=== PATIENT | female | born 1950 | race Caucasian/White ===

== ENCOUNTER 2023-02-21 18:14 | Emergency (ER) | payer MEDICARE, SELFPAY ==
--- NOTE | ~2023-02-21 | CT_ITS ---
EXAMINATION: CT HEAD WITHOUT CONTRAST CLINICAL INFORMATION: Head injury. On Xarelto. COMPARISON: None. TECHNIQUE: Contiguous axial imaging was performed from the skull base to vertex without intravenous administration of contrast. This CT examination was performed using dose optimization techniques as appropriate, variously including the following: *Automated exposure control *Adjustment of mA and/or kV according to patient size (this includes techniques or standardized protocols for targeted exams where dose is matched to indication/reason for exam; i.e. extremities or head) *Use of iterative reconstruction technique DLP: 567 mGy-cm. FINDINGS: There is no intracranial hemorrhage, large infarction, or mass lesion. There is no extra-axial collection. The ventricles are normal in size and configuration without evidence of hydrocephalus. The visualized paranasal sinuses and mastoid air cells are clear. The calvarium is intact. CT/CT head/brain wo IV con IMPRESSION: No acute intracranial abnormality.
--- NOTE | 2023-02-21 18:16 | ED_ITS ---
HPI - Wound/Laceration General Chief Complaint: Wound/Laceration Stated Complaint: laceration on forehead, fall at home Time Seen by Provider: 02/21/23 18:48 Source: patient and family Mode of arrival: ambulatory Limitations: no limitations History of Present Illness HPI narrative: 72-year-old female with a past medical history of atrial fibrillation currently on Xarelto who is presenting to the ER with complaints of a head injury with a laceration to her right forehead/scalp that occurred prior to arrival after she impacted 1 of the cabinets in the kitchen that she left open while she was trying to cook prior to arrival. She denies any actual fall down, loss of consciousness, neck injury, changes in vision, paresthesias, weakness or any other symptoms complaints or concerns at this time. Reports that she is up-to-date on tetanus since 2019. Onset (ago): minute(s) (Prior to arrival) Location: scalp and face Place: home Patient tetanus UTD: Yes Context: accidental Associated symptoms: none Treatments prior to arrival: bandage Related Data Allergies Allergy/AdvReac Type Severity Reaction Status Date / Time amiodarone Allergy Rash Verified 02/21/23 18:20 amoxicillin Allergy Rash Verified 02/21/23 18:20 bacitracin Allergy Rash Verified 02/21/23 18:20 bupropion [From Wellbutrin] Allergy Rash Verified 02/21/23 18:20 clavulanic acid Allergy Rash Verified 02/21/23 18:20 [From Augmentin] cocamidopropyl betaine Allergy Rash Verified 02/21/23 18:20 diltiazem Allergy Swelling Verified 02/21/23 18:20 Opioids - Morphine Analogues Allergy Nausea and Verified 02/21/23 18:20 Vomiting bactria ds Allergy Rash Uncoded 02/21/23 18:20 Review of Systems Review of Systems: Constitutional : No Fever, No Chills, Cardiovascular : No Chest Pain, No SOB Respiratory : No Dyspnea Gastrointestinal : No abdominal pain Musculoskeletal : No Joint Swelling Skin : positive skin laceration, No Foreign bodies, No rash, No surrounding erythema Neuro : No Weakness, No Numbness/tingling Psych : No SI/HI/thoughts of self injury Yes all other systems are reviewed and are negative PMFSH Past Medical History Attestation statement: The following information was validated with the patient. Source: old records reviewed, obtained from family and nursing notes reviewed Social History Social History Advance Directives: No Advance Directives Information Provided: Yes Physical Exam Vital Signs: Vital Signs: Last Vital Signs Temp 97.3 F 02/21/23 18:21 Pulse 79 02/21/23 18:21 Resp 18 02/21/23 18:21 BP 129/75 02/21/23 18:21 Pulse Ox 98 02/21/23 18:21 O2 Del Method Room Air 02/21/23 18:21 BMI result Body Mass Index 27.6 vital signs have been reviewed as normal and appeared to be correct. Blood pressure normal. Heart rate normal. Respiration rate normal. Temperature normal. Oxygen saturation normal. Appearance: Alert. Oriented X3. No acute distress. Head: Right forehead/scalp patient has 2 cm intermediate linear laceration. No active bleeding or foreign body or scalp tenderness. The rest of the external exam is atraumatic and nontender. No Tejeda signs noted. No raccoon eyes noted Eyes: PERRLA. EOMI. Conjunctiva and sclera normal. Eyelids normal. ENT: EAC normal. TM's Normal. No septal hematoma noted. No hemotympanum noted. Pharynx normal. Uvula midline. Moist mucous membranes. No lesions/ulcerations or masses noted on the tongue. Normal voice. No trismus noted. No drooling noted. No muffled voice noted. Neck: Normal inspection. Neck supple. FROM. No adenopathy. Thyroid Normal. No tracheal deviation noted. No crepitus is noted. No meningeal signs. No neck mass noted. No signs of trauma noted. CVS: Normal heart rate and rhythm. Heart sound normal. Pulses normal throughout. No murmurs/rales/gallops. Respiratory: No respiratory distress. Painless inspiration. Breath sounds normal. No wheezes/rales/rhonchi noted. Chest nontender. No crepitus is noted. No accessory muscle usage noted or decreased air movement noted. No signs of trauma. Abdomen: Soft and nontender. Nondistended. No guarding. No rigidity. Bowel sounds normal in all 4 quadrants. No distention noted. No organomegaly noted. No visible injury noted. No rebound tenderness. Negative Rovsing sign. Negative obturator's sign. Negative psoas sign. Negative Villavicencio sign. Back: No CVA tenderness. Full range of motion noted. Nontender. No signs of trauma. Patient neuro intact bilaterally and distally on all 4 extremities. P atient's reflexes intact bilaterally and distally on all 4 extremities. No rashes/lesion/induration/fluctuance or signs of infection noted. Skin: Skin warm and dry. Normal skin color. Normal skin turgor. No rashes/lesions/lacerations noted. Extremities: No lower extremity edema. No calf tenderness is noted. Extremities exhibit normal range of motion and nontender. Neuro: Oriented X 3. No motor deficit. No sensory deficit. Reflexes normal. Normal steady gait. No focal neuro deficits noted. CN's II-XII intact bilaterally? Vascular: + radial pulses/+ 2 distal pedal pulses/+2 dorsalis pedis b/l. Normal cap refill. No cyanosis noted to upper extremity nails and lower extremity toes nails. Course Course Course Narrative: This is an RME: Additional HPI, ROS, PE not included below will be deferred to primary provider. Patient is a 72-year-old female presents emergency department for evaluation of a laceration sustained to the forehead after striking it her head into a cabinet door while in the kitchen, Hx A-fib on Xarelto. Laceration to right frontal scalp line, bleeding controlled. TDap in 2019 Plan: CT head, wound repair Reevaluation(s) Reevaluation #1: Patient now status post laceration repair with a 4 simple interrupted stitches. Tetanus not indicated as patient's tetanus was already updated in 2019. CT scan of brain negative for any acute processes. Will DC home with symptomatic martinez atment antibiotics along with instructions to return in 5 days for suture removal and to follow up prior if signs of infection. Patient understands agrees the plan. Time: 20:04 Medications Administered Discontinued Medications Generic Name Dose Route Start Last Admin Trade Name Freq PRN Reason Stop Dose Admin Lidocaine HCl 10 ml 02/21/23 19:11 02/21/23 19:28 Lidocaine Hcl 1 % Mpf 5 Ml Vial SUBCUT 02/21/23 19:12 10 ml ONCE ONE Administration Medical Decision Making Medical Decision Making MDM Narrative: see course Differential Diagnosis Differential Diagnoses: The differential diagnosis associated with the presentation includes Patient with minor head injury not consistent with CVA; ICH; subarachnoid hemorrhage or any other acute processes. Independent Interpretation I performed an independent interpretation of an: CT Scan (CT scan of brain with out contrast negative for any acute processes this is my independent interpretation agreeable with radiology reports no discrepancy) Radiology Impression Discussion of test interpretation with radiology: I have reviewed the radiologist's reading. Independent Historian Clinical information obtained from an independent historian. History obtained from or confirmed by: Friend Procedures Laceration Laceration 1: Site: scalp Side (If applicable): right Size (cm): 2 Description: linear Depth: simple, single layer Local Anesthetic: lidocaine 1% Amount of anesthesia used (mL): 5 Pre-repair: wound explored, irrigated extensively and deep structures intact Skin layer closed with: nylon Size (cm): 5-0 Number of sutures: 4 Technique: simple, interrupted Discharge Plan Discharge Clinical Impression: Head injury without concussion or intracranial hemorrhage, Laceration of scalp Patient Disposition: Home, Self-Care Instructions: Head Injury (ED), Laceration (DC) Referrals: Natacha Ward PA [Emergency Midlevel Provider] - 5 days (FOR SUTURE REMOVAL)
[2023-02-21 18:21] VITALS: BP 129/75; PULSE 79; RESP 18; TEMP 36.3; O2SAT 98; BMI 27.6
[2023-02-21] MEDS: Lidocaine HCl 1 % MPF 5 ML VIAL 10 ML SUBCUT (19:28)
== END 2023-02-21 20:13 | disposition home or self-care (01) ==
PROVIDERS: Emergency Provider Emergency Medicine; PCP Family Medicine
DX: S01.01XA Laceration without foreign body of scalp, initial encounter (principal); R51.9 Headache, unspecified; W26.9XXA Contact with unspecified sharp object(s), initial encounter; Y93.9 Activity, unspecified; Y92.9 Unspecified place or not applicable; Y99.9 Unspecified external cause status; Z79.899 Other long term (current) drug therapy
CPT/HCPCS: 12031; 70450; 99282; 99284